=== PATIENT | female | born 1990 | race Caucasian/White ===

== ENCOUNTER 2017-07-10 09:04 | Day surgery (SDC) | payer OTHER, BC ==
[2017-07-09 13:09] VITALS: BMI 22.3
[2017-07-10 09:51] LABS: Hemoglobin 14.2 g/dL (12.0-16.0); Mean Corpuscular HGB CONC 34.1 g/dL (32.0-36.0); Mean Corpuscular Hemoglobin 30.3 pg (27.0-31.0); Mean Platelet Volume 6.7 fL (7.4-10.4); Platelet Count 198 thou/uL (130-400); RBC Distribution Width 11.9 % (11.5-14.5); Red Blood Cell (RBC) Count 4.67 mill/uL (4.20-5.40); White Blood Cell (WBC) Count 8.2 thou/uL (4.8-10.8)
[2017-07-10 09:56] LABS: PTT 27.2 SEC (22.9-36.1); Prothrombin Time 12.9 SEC (12.0-14.7)
[2017-07-10] MEDS ORDERED: Iothalamate Meglumine 60% 50 ML VIAL FS ONE (10:09)
[2017-07-10] MEDS ORDERED: Levofloxacin 500 mg/D5W 100 ml Premix Bag ONE (10:15)
[2017-07-10] MEDS ORDERED: Midazolam HCl 2 mg/2 ml Vial ONE ×2 (10:18→10:21)
[2017-07-10] MEDS ORDERED: Fentanyl 100 MCG/2 ML VIAL ONE ×2 (10:18→12:16)
[2017-07-10 10:21] LABS: Anion Gap 13 mmol/L (10-20); BUN (Urea Nitrogen) 12 mg/dL (7.0-18.7); Calc. Creatinine Clearance 94 mL/min (70-130); Calcium 9.4 mg/dL (7.8-10.44); Carbon Dioxide 25 mmol/L (22-29); Chloride 105 mmol/L (98-107); Estimated GFR-MDRD 81; Glucose 85 mg/dL (70-105); Potassium 4.4 mmol/L (3.5-5.1); Sodium 139 mmol/L (136-145)
[2017-07-10] MEDS ORDERED: SUGAMMADEX SODIUM 500 MG/5 ML VIAL ONE (11:41)
[2017-07-10] MEDS ORDERED: Oxybutynin 5 MG TAB ONE ×2 (12:10→12:54)
[2017-07-10] MEDS ORDERED: Phenazopyridine HCl 97.5 MG TABLET ONE ×2 (12:11→12:54)
[2017-07-10] MEDS ORDERED: Promethazine HCl 25 MG/ML VIAL ONE (12:17)
--- NOTE | 2017-07-10 12:23 | RAD ---
SUPINE ABDOMEN: Indications: Pre-operative evaluation. FINDINGS: Ureteral calculus. CT from 07-02-17 reveals a 4-6 mm calculus distal left ureter. The 5 mm calculus is seen in the left pelvis at the location of the distal left ureter. Calcific densities are seen overlying the upper pole of the left kidney which corresponds to the find ings on the CT of 07-02-17. Bowel gas pattern unremarkable. Stool throughout the colon. IMPRESSION: 1. 5 mm calculus is seen in the left pelvis at the site of the distal left ureter. 2. Numerous small calcifications overlie the left renal outline corresponding to the calcifications s een on recent CT. POS: [facility]
--- NOTE | 2017-07-10 12:50 | OP ---
DATE OF SERVICE: 07/10/2017 PREOPERATIVE DIAGNOSES: 1. A 26-year-old female with history of left distal ureteral calculi with hydronephrosis, 6 x 4 mm. 2. Multiple left renal calculi, approximately 5 in number, largest in the left upper pole measuring 5-6 mm, right kidney unremarkable. 3. Family history of recurrent kidney stones. POSTOPERATIVE DIAGNOSES: 1. A 26-year-old female with history of left distal ureteral calculi with hydronephrosis, 6 x 4 mm. 2. Multiple left renal calculi, approximately 5 in number, largest in the left upper pole measuring 5-6 mm, right kidney unremarkable. 3. Family history of recurrent kidney stones. PROCEDURES: Cystoscopy, left balloon dilation of the ureteral orifice, rigid ureteroscopy, laser lit hotripsy of distal intramural stone, basket extraction of stone fragments, flexible pyeloscopy, laser lithotripsy of left renal calculi, basket extraction of stone fragments, 6 x 26 double-J ureteral st ent with dangler taped to pubic symphysis. SURGEON: Melodie Robertson D.O. ANESTHESIA: General. COMPLICATIONS: None apparent. DISPOSITION: To recovery room in stable condition. SPECIMEN: Stone fragment for chemical analysis. INDICATIONS FOR THE PROCEDURE AND HISTORY: Michelle is a 26-year-old female [facility] due to left flank pain. The patient has a strong family history of recurrent kidney stones. CT demonstrated left ureteral stone distal 6 mm with hydronephrosis. Multiple left renal calculi dimensions as above. She was given trial of medical expulsion therapy, due to persiste nt stone nidus and recurrent pain, presents today for ureteroscopy, laser lithotripsy. Risks and com plications of the procedure was reviewed with her in detail including, but not limited to: Bleeding, pain, infection, injury to adjacent organs, urosepsis, stricture formation, injury to ureteral kidne y, bladder, possible secondary procedure, was reviewed with her in detail and she desired to proceed. As she has a stone nidus up in the kidney, she desired to have that treated as well as possible. DESCRIPTION OF THE PROCEDURE: After an informed consent is signed, the patient is taken to the opera ting room and placed in a dorsal lithotomy position with the genital area prepped and draped in the u [facility] surgical sterile fashion. A 21-Norwegian cystoscope was utilized for cystoscopy which demonstrated normal urethra. Bladder was entered which demonstrated normal bladder mucosa with no lesion, no [place] or, no stones. Upon visualizing the left UO, we can see the distal edge of the stone and the aspect of the intramural ureter. A 0.35 sensor wire was able to be negotiated proximally into the left uppe r pole. We dilated the ureteral orifice with [employer] 4 cm 12-Norwegian balloon as the stone d id migrate just proximal to the intramural ureter. Fluoroscopy was utilized to balloon dilate the ur eter, distal to the ureter stone itself. After adequate pressure held, we were able to easily pass a rigid ureteroscope to engage the stone. A 200 micron laser fiber at a setting was utilized to fragm ent the stone. All stone nidus was basket extracted with a 0 tip nitinol basket atraumatically. At this time, a second safety wire utilizing a 10 Norwegian dual-lumen access sheath was utilized in the le ft upper pole. Retrograde pyelogram demonstrated opacification with unremarkable kidney. With the s econd Super Stiff wire in place, we tried to pass an 11/13 Norwegian navigator; however, it would not pa ss into the mid ureter; therefore, I did not forcibly engage. Therefore, a flexible ureteroscope was advanced over the working Super Stiff wire. This did pass without any issues. Surveying of the col lecting system demonstrated multiple Gallo plaques punctate in nature consistent with recurrent kid eric stones. There was a mid pole stone about 3 mm adherent to the renal papilla which was laser lith otripsied, there was a larger stone 6 mm consistent with the CAT scan of the left upper pole. Using 200 micron laser fiber, we laser lithotripsied the stone into multiple tiny fragments. As I did not have a navigator, I did laser lithotripsy the stone as much as we could into dust-like setting. Ther e was a nidus that we were able to basket extract which was retrieved uneventfully. The ureter was s urveyed which demonstrated no evidence of ureteral mucosa trauma. A 6 x 26 double-J ureteral stent w as passed without difficulty with adequate redundancy in the bladder. The dangler was taped to the p atient's pubic symphysis. She will follow up with me in 1 week to have her stent removed on dangler. Given her history of recurrent kidney stone family history, and multiple Gallo plaques, I do plan on performing a full metabolic panel for stone workup at a later date. She is discharged with [place] 5/325 #50, VESIcare #7 one p.o. daily, AZO p.r.n., ciprofloxacin until followup appointment.
--- NOTE | 2017-07-10 13:35 | RAD ---
INTRAOPERATIVE FLUOROSCOPY: HISTORY: Retrograde IVP. Cystogram. COMPARISON: None. FINDINGS: Two fluoroscopic images are submitted for interpretation. The first image demonstrates unremarkable bowel gas pattern and osseous structures. The second image demonstrates a left-sided double-pigtail ureteral stent with the proximal pigtail presumed to be in the left renal pelvis and the distal pigta il presumed to be in the urinary bladder. IMPRESSION: Fluoroscopy as above. POS: [facility]
[2017-07-10] MEDS ORDERED: PROPOFOL 200 MG/20 ML VIAL ONE (15:16)
[2017-07-10] MEDS ORDERED: Lidocaine 1% PF 5 ML VIAL ONE (15:16)
[2017-07-10] MEDS ORDERED: Ketorolac Tromethamine 30 MG/ML VIAL ONE (15:16)
== END 2017-07-10 13:30 | disposition home or self-care (01) ==
LOC: SDC 09:04
PROVIDERS: ATTEND Urology
PROC: 0T778DZ Dilation of Left Ureter with Intraluminal Device, Via Natural or Artificial Opening Endoscopic (ICD-10-PCS; principal; 2017-07-10)
PROC: 0TC48ZZ Extirpation of Matter from Left Kidney Pelvis, Via Natural or Artificial Opening Endoscopic (ICD-10-PCS; principal; 2017-07-10)
PROC: 0TC78ZZ Extirpation of Matter from Left Ureter, Via Natural or Artificial Opening Endoscopic (ICD-10-PCS; principal; 2017-07-10)
DX: N20.0 Calculus of kidney (principal); N20.1 Calculus of ureter; G43.909 Migraine, unspecified, not intractable, without status migrainosus; Z79.899 Other long term (current) drug therapy; Z79.2 Long term (current) use of antibiotics
CPT/HCPCS: 36415; 74018; 74420; 80048; 82365; 85027; 85610; 85730; 88300; 96374; 96375; C1758; C1769; J1885; J1956; J2001; J2250; J2550; J2704; J3010; Q9961

== ENCOUNTER 2017-11-27 08:47 | Outpatient (CLI) | payer OTHER, BC | END 2017-11-27 08:48 | disposition home or self-care (01) | LOC: BICULT 08:47 | PROVIDERS: ATTEND Urology | DX: N20.0 Calculus of kidney (principal); N28.1 Cyst of kidney, acquired | CPT/HCPCS: 74018; 76770 ==

== ENCOUNTER 2020-05-27 13:34 | Outpatient (CLI) | payer BC ==
[~2020-05-27 13:34] MED LIST: Iopamidol 300 61% 50 ML VIAL FS ONE
[2020-05-27 14:10] LABS: BHCG - Serum Negative (NEGATIVE)
[2020-05-27 14:11] LABS: Pregs Control Background? CLEAR/WHITE (CLR/WHITE); Pregs Control Bar Appear? YES (CONTROL BAR)
== END 2020-05-27 13:35 | disposition home or self-care (01) ==
LOC: RAD 13:34
PROVIDERS: ATTEND Student in an Organized Health Care Education/Training Program
DX: N97.9 Female infertility, unspecified (principal)
CPT/HCPCS: 58340; 74740; 84703; Q9967